=== PATIENT | male | born 1950 | race Caucasian/White ===

== ENCOUNTER 2017-10-24 11:30 | Outpatient (CLI) | payer MEDICARE, OTHER ==
[2017-10-24] MEDS ORDERED: Gadobenate Dimeglumine 529 MG/1 ML (20ML VIAL) ONE (12:09)
--- NOTE | 2017-10-24 15:06 | MRI ---
MRI BRAIN WITH AND WITHOUT CONTRAST: Technique: Multiplanar, multisequential imaging of brain obtained. Post contrast images were obtained after administering 18 cc of MultiHance IV. History: Left facial paraesthesia. FINDINGS: Ventricles have normal size and position. There is mild cortical volume loss. Very mild ischemic whit e matter change. No mass or edema. No evidence of restricted diffusion. ==== nerves appear unremarkab le. No evidence of cerebellar pontine angle mass lesion. Internal auditory canals unremarkable in sharda earance. Intracranial internal carotid arteries and proximal cerebral arteries show flow voids. There is a mucous retention cyst in the right maxillary antrum measuring up to 2.4 cm. IMPRESSION: Unremarkable MRI of brain. POS: [facility]
== END 2017-10-24 11:31 | disposition home or self-care (01) ==
LOC: MRI 11:30
PROVIDERS: ATTEND Psychiatry & Neurology Neurology
DX: R20.9 Unspecified disturbances of skin sensation (principal)
CPT/HCPCS: 70553; A9579